=== PATIENT | female | born 1990 | race Caucasian/White ===

== ENCOUNTER 2018-01-26 23:42 | Emergency (ER) | payer OTHER ==
[2018-01-27] MEDS: NS 1,000 ML IV (00:15)
[2018-01-27 00:33] LABS: ALBUMIN 4.1 GM/DL (3.2-5.2); ALBUMIN/GLOBULIN RATIO 1.14 (1.00-1.93); ALKALINE PHOSPHATASE 84 U/L (45-117); ALT/SGPT 65 U/L (12-78); ANION GAP 11 MEQ/L (8-16); AST/SGOT 37 U/L (7-37); BILIRUBIN,DIRECT < 0.1 MG/DL (0.0-0.2); BILIRUBIN,TOTAL 0.2 MG/DL (0.2-1.0); BLOOD UREA NITROGEN 9 MG/DL (7-18); CALCIUM LEVEL 8.8 MG/DL (8.5-10.1); CARBON DIOXIDE LEVEL 24 MEQ/L (21-32); CHLORIDE LEVEL 111 MEQ/L (98-107); GLOMERULAR FILTRATION RATE > 60.0 (>60); GLUCOSE, FASTING 86 MG/DL (70-100); LIPASE 180 U/L (73-393); POTASSIUM SERUM 3.8 MEQ/L (3.5-5.1); SODIUM LEVEL 146 MEQ/L (136-145); TOTAL PROTEIN 7.7 GM/DL (6.4-8.2)
[2018-01-27] MEDS: MORPHINE 4 MG/ML 1ML VIAL/SYRINGE (J2270) IV ×2 (00:36→02:14)
[2018-01-27 00:45] LABS: BASO # 0.1 10^3/uL (0.0-0.2); EOS # 0.4 10^3/uL (0.0-0.50); EOS % 5.2 % (0.0-3.0); HEMATOCRIT 38.8 % (36.0-47.0); HEMOGLOBIN 13.2 g/dl (12.0-15.5); IMMATURE GRANULOCYTE % 0.4 % (0-3.0); LYMPH # 3.5 10^3/uL (1.5-6.5); LYMPH % 44.6 % (24.0-44.0); MEAN CORPUSCULAR HEMOGLOBIN 31.4 pg (27.0-33.0); MEAN CORPUSCULAR VOLUME 92.2 fl (80.0-96.0); MONO # 0.6 10^3/uL (0.0-0.8); MONO % 7.3 % (0.0-5.0); NEUTROPHILS # 3.3 10^3/uL (1.8-7.7); NEUTROPHILS % 41.5 % (36.0-66.0); PLATELET COUNT, AUTOMATED 343 10^3/uL (150-450); RED BLOOD COUNT 4.21 10^6/uL (4.00-5.40); RED CELL DISTRIBUTION WIDTH 12.1 % (11.5-14.5); WHITE BLOOD COUNT 7.9 10^3/uL (4.0-10.0)
[2018-01-27] MEDS ORDERED: ISOVUE-370 76% 100ML VIAL (Q9967) As Ordered (01:11)
[2018-01-27 01:45] LABS: CONTROL LINE HCG INT CTR LINE PRESENT; HCG, SERUM QUALITATIVE NEGATIVE (NEGATIVE)
[2018-01-27] MEDS: ONDANSETRON 4MG/2ML VIAL (J2405) IV (02:15)
[2018-01-27 03:59] LABS: KETONE, URINE AUTO RFX NEGATIVE (NEGATIVE); LEUKOCYTE ESTERASE UR AUTO RFX NEGATIVE (NEGATIVE); NITRITE, URINE AUTO RFX NEGATIVE (NEGATIVE); RBC, URINE AUTO RFX 1 /HPF (0-3); SPECIFIC GRAVITY UR AUTO RFX 1.034 (1.002-1.035); SQUAM EPITHELIAL CELL UR AURFX 0 /HPF (0-6); WBC, URINE AUTO RFX 0 /HPF (0-3)
== END 2018-01-27 04:35 | disposition home or self-care (01) ==
LOC: M ED 23:42
DX: K29.70 Gastritis, unspecified, without bleeding (principal); Z87.891 Personal history of nicotine dependence
CPT/HCPCS: J2270

== ENCOUNTER 2018-08-30 11:31 | Emergency (ER) | payer OTHER ==
[~2018-08-30] VITALS: Ht 167.6 cm; Wt 72.9 kg
[~2018-08-30 11:31] MED LIST: CARA1TAB6 PO; PROT1TAB2 PO
[2018-08-30 13:13] VITALS: BP 122/78
== END 2018-08-30 13:14 | disposition home or self-care (01) ==
LOC: M ED 11:31
DX: F07.81 Postconcussional syndrome (principal); S06.0X0A Concussion without loss of consciousness, initial encounter; W19.XXXA Unspecified fall, initial encounter; Y92.099 Unspecified place in other non-institutional residence as the place of occurrence of the external cause; Y93.89 Activity, other specified; Y99.9 Unspecified external cause status

== ENCOUNTER → 2019-02-06 | Outpatient (CLI) | payer OTHER ==
--- NOTE | 2019-02-07 04:59 | REP ---
Clinical: Anatomical evaluation. Comparison: None . Findings: Examination demonstrates a single live intrauterine in cephalic presentation. motion is identified by technologist. Placenta is noted anterior and grade zero without evidence for placenta previa or abruption. Amniotic fluid volume is normal. Cervix measures 3.9 cm in length and appears closed. No evidence for nuchal cord. Gestational age by LMP 20 weeks 6 days with SONAL 06/20/2019 . Gestational age by current measurements 20 weeks 2 days with SONAL 06/24/2019 . FHR equals 153 beats per minute. BPD 4.6 cm 20 weeks 0 days HC 17.4 cm 19 weeks 6 days AC 15.1 cm 20 weeks 2 days FL 3.3 cm 20 weeks 2 days HL 3.1 cm 20 weeks 3 days HC/AC ratio 1.15 Estimated weight 345 grams ( 27th percentile). Anatomical assessment demonstrates normal structures including cranium, choroid plexus, cavum, cerebellum/posterior fossa, lungs, four-chamber heart, diaphragm, stomach, cord insertion/three-vessel cord, kidneys/bladder, spine, and extremities. Impression: 1. Single live intrauterine in cephalic presentation demonstrating appropriate interval growth. 2. Limited evaluation of the facial features and cardiac ventricular outflow tracts. Remainder of the anatomical assessment is complete and normal. Electronically Signed by Santhosh Meneses MD 02/07/2019 04:50 A
== END ==
LOC: M RAD 13:07
PROVIDERS: ATTEND Advanced Practice Midwife
DX: Z36.9 Encounter for antenatal screening, unspecified (principal); Z3A.20 20 weeks gestation of pregnancy

== ENCOUNTER → 2019-02-08 | Outpatient (CLI) | payer OTHER ==
[2019-02-08 18:08] LABS: BASO # 0.1 10^3/uL (0.0-0.2); BASO % 0.4 % (0.0-1.0); EOS # 0.2 10^3/uL (0.0-0.5); EOS % 1.9 % (0.0-3.0); HEMATOCRIT 35.7 % (36.0-47.0); HEMOGLOBIN 11.6 g/dl (12.0-15.5); LYMPH # 1.7 10^3/uL (1.5-5.0); LYMPH % 14.3 % (24.0-44.0); MEAN CORPUSCULAR HEMOGLOBIN 31.5 pg (27.0-33.0); MEAN CORPUSCULAR HGB CONC 32.5 g/dl (32.0-36.5); MONO # 0.8 10^3/uL (0.0-0.8); MONO % 6.9 % (0.0-5.0); NEUTROPHILS # 8.9 10^3/uL (1.5-8.5); NEUTROPHILS % 75.6 % (36.0-66.0); PLATELET COUNT, AUTOMATED 311 10^3/uL (150-450); RED BLOOD COUNT 3.68 10^6/uL (4.00-5.40); WHITE BLOOD COUNT 11.8 10^3/uL (4.0-10.0)
[2019-02-08 19:10] LABS: CHLAMYDIA DNA AMPLIFICATION NEGATIVE (NEGATIVE); GC DNA AMPLIFICATION NEGATIVE (NEGATIVE)
[2019-02-11 14:25] LABS: HIV 1&2 SCREEN CENTAUR NEGATIVE (NEGATIVE); RUBELLA IgG QUALITATIVE IMMUNE (IMMUNE)
== END ==
LOC: M SMT 13:46
PROVIDERS: ATTEND Advanced Practice Midwife
DX: Z34.82 Encounter for supervision of other normal pregnancy, second trimester (principal)

== ENCOUNTER → 2019-03-06 | Outpatient (CLI) | payer OTHER ==
--- NOTE | 2019-03-06 13:42 | REP ---
OB ULTRASOUND: Real-time sonographic evaluation of the gravid uterus is performed. There is a single living intrauterine gestation with an estimated gestational age of 24 weeks 6 days, EDC 06/20/2019. Today's measurements indicate appropriate growth. BPD 56 mm = 23 weeks 1 day, less than 5th percentile HC 223 mm = 24 weeks 2 days, 37th percentile AC 197 mm = 24 weeks 2 days, 38th percentile Femur length 46 mm = 25 weeks 3 days, 60th percentile HC/AC ratio 1.13 within normal range. Estimated weight 724 grams, 38th percentile. Cervix is closed and measures 5.5 cm in length. heart rate 154 beats per minute. SEEN/GROSSLY UNREMARKABLE Lateral ventricles Yes Posterior fossa Yes Upper lip Yes Four-chamber heart Yes LVOT Yes RVOT Yes Stomach Yes Cord insertion No Three vessel cord Yes Kidneys Yes Bladder Yes Spine Yes position: Vertex. Placenta: Is on the right, grade 0 with no previa or abruption. Amniotic fluid: Within normal limits. Unreviewed
== END ==
LOC: M RAD 11:09
PROVIDERS: ATTEND Advanced Practice Midwife
DX: Z34.82 Encounter for supervision of other normal pregnancy, second trimester (principal)

== ENCOUNTER 2019-03-19 14:56 | Outpatient (CLI) | payer OTHER ==
[~2019-03-19] VITALS: Ht 167.6 cm; Wt 89.0 kg
[2019-03-19 15:10] VITALS: BP 119/72
[2019-03-19] MEDS ORDERED: PRENTAB9 PO (15:24)
[2019-03-19] MEDS ORDERED: MAPA500T2 PO (15:24)
--- NOTE | 2019-03-19 15:53 | IPNPDOC ---
Text Note Date of Service The patient was seen on 03/19/19. NOTE Subjective: Patient is a 28-year-old female at 26 weeks 5 days gestational age who presents to labor and delivery unit for acute onset back pain. Patient states that yesterday she started experiencing waves of back pain which radiated around to her right side. Today, about an hour and a half before presenting to the hospital, she started experiencing severe back pain mostly on the right side that radiated around her flank into her abdomen. Patient was concerned that she was having contractions so she called the office and was asked report for further evaluation. When asked to point to where she is having the back pain she points to her lower back on the right side. Patient reports that she is feeling the baby move. She denies any vaginal bleeding or discharge. She denies any fevers, dysuria, nausea, or vomiting. She does state that she is having less frequent bowel movements and prior to . Objective: Vitals: (see below) General: Alert and oriented female who was laying on the stretcher, in the room. Patient was able to talk full sentences however, she would get these waves of pain that she would have to breathe through. Once he is wasted past, she returned to normal details a talk in full sentences again. HEENT: Normocephalic, atraumatic, moist mucous membranes. Cardiac: RRR, No murmurs Pulm: Clear to auscultation b/l. No wheezing, rhonchi Abd: Uterus is soft and nontender to palpation. Uterine fundus is felt above the umbilicus. No CVA tenderness. Musculoskeletal: No tenderness to palpation of the paraspinal muscles bilaterally. Ext: No edema bilateral lower extremities heart tracing: Category 1 Labs (see below) Assessment/Plan Patient is a 28-year-old female at 26 weeks 5 days gestation who presents to the labor and delivery unit for acute onset back pain. Patient's urinalysis was negative for blood. Patient most likely has sacroiliitis or SI. Patient took a gram of Tylenol about 2-1/2 hours ago. Patient will be on Flexeril. Based on exam, patient is not in labor at this time. Patient will be discharged home. VS,Fishbone, I+O VS, Fishbone, I+O Vital Signs Date Time Temp Pulse Resp B/P (MAP) Pulse Ox O2 Delivery O2 Flow Rate FiO2 03/19/19 15:10 98.2 87 20 119/72 (88) GME ATTESTATION GME ATTESTATION My faculty preceptor for this patient encounter was physically present during the encounter and was fully available. All aspects of the patient interview, examination, medical decision making process, and medical care plan development were reviewed and approved by the faculty preceptor. The faculty preceptor is aware and concurs with the plan as stated in the body of this note and will attest to such by his/her cosignature. RAY GRAF DO Mar 19, 2019 15:53
[2019-03-19] MEDS ORDERED: PERCOCET 5MG/325MG TAB PO ONE (16:00)
[2019-03-19] MEDS ORDERED: CYCLOBENZAPRINE 10 MG TAB PO ONE (16:00)
== END 2019-03-19 16:39 | disposition home or self-care (01) ==
LOC: M LDO 14:56
PROVIDERS: ATTEND Specialist
DX: O26.892 Other specified pregnancy related conditions, second trimester (principal); Z3A.26 26 weeks gestation of pregnancy
CPT/HCPCS: G0378; G0463

== ENCOUNTER → 2019-03-25 | Outpatient (CLI) | payer OTHER ==
[~2019-03-25] MED LIST changes: +MAPA500T2 PO; +PRENTAB9 PO
== END ==
LOC: M PLALAB 09:53
PROVIDERS: ATTEND Advanced Practice Midwife
DX: Z34.93 Encounter for supervision of normal pregnancy, unspecified, third trimester (principal)

== ENCOUNTER → 2019-04-19 | Outpatient (CLI) | payer OTHER ==
[2019-04-19 17:25] LABS: HEMATOCRIT 32.3 % (36.0-47.0); HEMOGLOBIN 11.1 g/dl (12.0-15.5); MEAN CORPUSCULAR HEMOGLOBIN 32.2 pg (27.0-33.0); MEAN CORPUSCULAR HGB CONC 34.4 g/dl (32.0-36.5); MEAN CORPUSCULAR VOLUME 93.6 fl (80.0-96.0); PLATELET COUNT, AUTOMATED 309 10^3/uL (150-450); RED BLOOD COUNT 3.45 10^6/uL (4.00-5.40); WHITE BLOOD COUNT 10.2 10^3/uL (4.0-10.0)
== END ==
LOC: M PLALAB 14:02
PROVIDERS: ATTEND Advanced Practice Midwife
DX: Z34.03 Encounter for supervision of normal first pregnancy, third trimester (principal)

== ENCOUNTER 2019-05-02 13:52 | Outpatient (CLI) | payer OTHER ==
[~2019-05-02] VITALS: Ht 167.6 cm; Wt 90.4 kg
[2019-05-02 14:04] VITALS: BP 97/56
[2019-05-02 14:56] VITALS: BP 139/62
--- NOTE | 2019-05-02 15:04 | IPN ---
DATE OF EVALUATION: 05/02/2019 28-year-old, (G) 1, para (P) 0 female, at 33 weeks gestation, presents with several days of lower back pain that radiates to her groin. Pain is constant. It is not relieved with Tylenol or heat. She was diagnosed with sacroiliitis on a previous visit. OBJECTIVE: Blood pressure 97/56. Afebrile. No apparent distress. Head and neck exam normal. Abdomen nontender, gravid. No costovertebral angle (CVA) tenderness. heart tones category 1. Contractions none. Extremities nontender. ASSESSMENT: 28-year-old, 1, para 0, at 33 weeks, with sacroiliitis. PLAN: Discharge patient home. She will take Tylenol as needed. She will increase her warm baths. She declines further intervention such as muscle relaxants or narcotics for pain relief. She will followup in the office in 1 day.
== END 2019-05-02 15:00 | disposition home or self-care (01) ==
LOC: M LDO 13:52
PROVIDERS: ATTEND Specialist
DX: O99.89 Other specified diseases and conditions complicating pregnancy, childbirth and the puerperium (principal); M46.1 Sacroiliitis, not elsewhere classified; Z3A.33 33 weeks gestation of pregnancy
CPT/HCPCS: 59025; G0378; G0463

== ENCOUNTER → 2019-05-29 | Outpatient (REF) | payer OTHER | LOC: M SFHCWAGY 10:47 | PROVIDERS: ATTEND Advanced Practice Midwife | DX: Z36.85 Encounter for antenatal screening for Streptococcus B (principal) ==

== ENCOUNTER → 2019-06-05 | Outpatient (REF) | payer OTHER | LOC: M PLALAB 14:59 | PROVIDERS: ATTEND Advanced Practice Midwife | DX: Z34.03 Encounter for supervision of normal first pregnancy, third trimester (principal) ==

== ENCOUNTER 2019-06-14 16:39 | Inpatient (IN) | payer OTHER ==
[~2019-06-14] VITALS: Ht 167.6 cm; Wt 94.8 kg
[2019-06-14 17:05] VITALS: BP 130/74
[2019-06-14] MEDS: LR 1,000 ML IV SCH (17:15)
[2019-06-14] MEDS ORDERED: miSOPROStol 50 MCG 1/2 TAB (S0191) PO SCH (17:15)
[2019-06-14] MEDS ORDERED: LACTATED RINGER'S 1000 ML IV STA (17:15)
[2019-06-14 18:11] LABS: HEMATOCRIT 30.6 % (36.0-47.0); HEMOGLOBIN 10.3 g/dl (12.0-15.5); MEAN CORPUSCULAR HEMOGLOBIN 30.2 pg (27.0-33.0); MEAN CORPUSCULAR HGB CONC 33.7 g/dl (32.0-36.5); MEAN CORPUSCULAR VOLUME 89.7 fl (80.0-96.0); PLATELET COUNT, AUTOMATED 289 10^3/uL (150-450); RED BLOOD COUNT 3.41 10^6/uL (4.00-5.40); WHITE BLOOD COUNT 9.3 10^3/uL (4.0-10.0)
[2019-06-14] MEDS ORDERED: SLF 3 ML SYR IV PRN (18:30)
[2019-06-14 18:33] VITALS: BP 133/77
--- NOTE | 2019-06-14 19:38 | HPEPDOC ---
Obstetrical History & Physical General Date of Admission Jun 14, 2019 at 16:39 Primary Care Physician: ARLIN LOGAN CNM History of Present Illness Patient is a 29-year-old female who is a at 39.1 weeks gestation with an SONAL of 06/20/19 based off of her 1st trimester ultrasound. She initiated care in [place] and transferred care to [facility] at 17 weeks gestation. Her has been uncomplicated. She presents for an elective induction of labor due to her being deployed in 5 days. She denies contractions, bleeding, leaking of fluid. She reports active movement. Chief Complaint: Induction of labor Information Provided By: Patient Age: 29 : 1 Term: 0 Pre-term: 0 Abortions: 0 Livin Care Care: Good Care Dating Final EDC: Jun 20, 2019 Final EDC by: 1st trimester (US) EGA at Admission: 39.1 Antepartum Course Height (inches): 66 Pre- weight (lbs.): 170 Admission Weight (lbs.): 208 Change in Weight (lbs.): 38 Past Medical History Past Obstetrical History : Past Obstetrical History: [employer] History: No pertinent history Past Medical History Medical History asthma seasonal allergies Surgical History: Tonsilectomy, Other (repair of fracture) Family History Significant Family History: Heart disease Social History Marital Status: Family situation: Spouse/partner home Psychosocial History: Anxiety, Depression * Smoker: former Smoker Alcohol: Denies Drugs: denies Abuse Violence Screening Have you been hit/kicked/slapp: No Have you been sexually assault: No Imunizations Tdap status: current Allergies Coded Allergies: No Known Allergies (Unverified , 01/26/18) Medications Scheduled No.137/Iron/Folic Acd ( Vitamin Tablet) 1 Each Tablet, 1 TAB PO DAILY Physical Examination Physical Examination GENERAL: Alert and oriented times three. BREAST: . ABDOMEN: Gravid and non-tender to touch. FETUS: Is vertex (VTX) by sterile vaginal examination (SVE), fetus is vertex (VTX) by Avelino. HEART RATE: Regular rate and rhythm. LUNGS: Clear to auscultation (CTA). EXTREMITIES: No edema. No clonus. Deep tendon reflexes (DTRs) + 2. Vital Signs/I&O Vital Signs Date Time Temp Pulse Resp B/P (MAP) Pulse Ox O2 Delivery O2 Flow Rate FiO2 06/14/19 18:33 98.4 88 16 133/77 (95) Laboratory Data 24H LABS Laboratory Tests 2 06/14/19 17:02: Serology Scanned Report Hepatitis B Testing 06/14/19 18:01: Nucleated Red Blood Cells % (auto) 0.0 CBC/BMP Laboratory Tests 06/14/19 18:01 Pertinent Laboratoy Data Blood Type: O+ RBC Antibody Screen: Negative HIV: Negative Hepatitis B: Negative Hepatitis C: Negative Rapid Plasma Reagin: Nonreactive Rubella: Immune Chlamydia/Gonorrhea: Negative Group B Streptococcus: Negative Glucose Tolerance Test: 109 Vaginal Examination Dilation: 1cm Effacement: other (75%) Station: -2 Cervical Consistency: Soft Cervical Position: Anterior Presentation: Cephalic presentation Position: Vertex (occiput) Assessment Heart Rate (FHR): 130 Variability: Moderate Accelerations: Positive Decelerations: None Tocometer Contractions: Yes Frequency: irregular Multi-drug resistant Organism: No history of MDRO Assessment/Plan Assessment IUP at 39. 1 weeks gestation elective IOL GBS negative Category I FHR tracing Plan Admit to L&D. OOB ad rubina. Diet: regular then change to clears with IV Pitocin. Group B Streptococcus (GBS) negative. Labs and intravenous (IV) per unit protocol. Counseled on Cytotec, thomas bulb and Pitocin and induction of labor (IOL). Anesthesia consult per patient's request. Lactated Ringers (LR): Bolus 800 mL prior to epidural then at 125 mL/hr. Anticipate cervical ripening and cervical change. C-S as appropriate. ARLIN LOGAN CNM Jun 14, 2019 19:38
[2019-06-14 19:44] VITALS: BP 116/79
[2019-06-14 21:26] VITALS: BP 124/79
[2019-06-14] MEDS ORDERED: OXYTOCIN DRIP 30 UNITS in IV 1 EA IV SCH (21:45)
--- NOTE | 2019-06-14 21:45 | IPNPDOC ---
Obstetrical Progress Note Date of Service Jun 14, 2019 Subjective Patient reports she is feeling her contractions. Objective Vital Signs Date Time Temp Pulse Resp B/P (MAP) Pulse Ox O2 Delivery O2 Flow Rate FiO2 06/14/19 19:44 92 116/79 (91) 06/14/19 18:33 98.4 16 Assessment Heart Rate (FHR): 130 Variability: Moderate Accelerations: Positive Decelerations: None Heart Rate Tracing: Category I Tocometer Contractions: Yes Frequency: regular, other (3-5 minutes) Sterile Vaginal Examination Dilation: 2cm Effacement (%): other (75%) Station: -1 Cervical Consistency: Soft Cervical Position: Anterior Postion/Presentation: Cephalic presentation Assessment and Plan Age: 29 : 1 Term: 0 Pre-term: 0 Abortions: 0 Livin EGA at Admission: 39.1 Status: Reassuring Group B Streptococcus: Negative Anticipate: Vaginal Delivery Additional Comments Cook's Mejia bulb inserted with 60/40 cc of fluid. Patient tolerated well. IV Pitocin will be started per order. ARLIN LOGAN CNM Jun 14, 2019 21:45
[2019-06-14] MEDS: SLF 3 ML SYR IV SCH (22:00)
[2019-06-14 22:49] VITALS: BP 120/78
[2019-06-14 23:20] VITALS: BP 114/67
[2019-06-15] VITALS (47 sets, daily range): BP systolic 102–140; BP diastolic 56–83
--- NOTE | 2019-06-15 01:14 | IPNPDOC ---
Obstetrical Progress Note Date of Service Jun 15, 2019 Subjective Patient reports she is comfortable and trying to sleep. Objective Vital Signs Date Time Temp Pulse Resp B/P (MAP) Pulse Ox O2 Delivery O2 Flow Rate FiO2 06/14/19 19:44 92 116/79 (91) 06/14/19 18:33 98.4 16 Assessment Heart Rate (FHR): 125 Variability: Moderate Accelerations: Positive Decelerations: None Heart Rate Tracing: Category I Tocometer Contractions: Yes Frequency: regular Sterile Vaginal Examination Dilation: 4 cm (4-5 cm) Effacement (%): other (75%) Station: -2 Cervical Position: Anterior Postion/Presentation: Cephalic presentation Assessment and Plan Age: 29 : 1 Term: 0 Pre-term: 0 Abortions: 0 Livin EGA at Admission: 39.1 Weeks & Days 39.2 Status: Reassuring Group B Streptococcus: Negative Anticipate: Vaginal Delivery Additional Comments Mejia bulb is out. Pitocin is a 4 mu/min. Continue to increase IV Pitocin and consider AROM. ARLIN LOGAN CNM Jun 15, 2019 01:14
[2019-06-15] MEDS: LR 1,000 ML IV SCH ×2 (01:15→13:50)
[2019-06-15] MEDS: SLF 3 ML SYR IV SCH (06:00)
--- NOTE | 2019-06-15 06:39 | IPNPDOC ---
Obstetrical Progress Note Date of Service Jun 15, 2019 Subjective Patient reports she is comfortable and able to sleep through her contractions. Objective Vital Signs Date Time Temp Pulse Resp B/P (MAP) Pulse Ox O2 Delivery O2 Flow Rate FiO2 06/15/19 00:50 106 108/56 (73) 06/14/19 18:33 98.4 16 Assessment Heart Rate (FHR): 125 Variability: Moderate Accelerations: Positive Decelerations: None Heart Rate Tracing: Category I Tocometer Contractions: Yes Frequency: regular, other (2 to 8 minutes) Sterile Vaginal Examination Dilation: 5 cm Effacement (%): other (75%) Station: -2 Cervical Consistency: Soft Cervical Position: Middle Postion/Presentation: Shoulder presentation Assessment and Plan Age: 29 : 1 Term: 0 Pre-term: 0 Abortions: 0 Livin EGA at Admission: 39.1 Weeks & Days 39.2 weeks today Status: Reassuring Group B Streptococcus: Negative Anticipate: Vaginal Delivery Additional Comments IV Pitocin 16 mu/min. AROM to a moderate amount of clear fluid. ARLIN LOGAN CNM Jun 15, 2019 06:39
[2019-06-15] MEDS ORDERED: FENTANYL 2MCG/ML ROPIVACAINE 0.2% IN 0.9% NACL 100ML IVBAG As Ordered ONE (08:17)
[2019-06-15] MEDS ORDERED: ePHEDrine SULFATE 25 MG/5 ML(5MG/ML) SYRINGE IV PRN (10:00)
[2019-06-15] MEDS ORDERED: EPIDURAL/PCA KEYS XX PRN (10:00)
[2019-06-15] MEDS ORDERED: REFRIGERATOR IV KEYS XX PRN (10:00)
[2019-06-15] MEDS ORDERED: FENTANYL/ROPIVACAINE/NACL BAG 100 ML EPIDURAL SCH (10:00)
[2019-06-15] MEDS ORDERED: NALOXONE INJ 0.4 MG/1 ML VIAL (J2310) IV PRN (10:00)
[2019-06-15] MEDS ORDERED: diphenhydrAMINE INJ 50MG/ML VIAL (J1200) IV PRN (10:00)
[2019-06-15] MEDS ORDERED: ONDANSETRON 4MG/2ML VIAL (J2405) IV PRN (10:00)
[2019-06-15] MEDS ORDERED: EPIDURAL COMMENT XX SCH (10:00)
[2019-06-15] MEDS ORDERED: LACTATED RINGER'S 1000 ML IV PRN (10:00)
--- NOTE | 2019-06-15 11:55 | IPNPDOC ---
Text Note Date of Service The patient was seen on 06/15/19. NOTE S: Patient is comfortable with epidural in place O: FHR: 125 bpm, moderate variability, occasional early and variable decels, cat II [place]: contractions difficult to order picker/assembler SVE: 5/80/0 A: 29 y.o. at 39.2 EGA for IOL. P: Pit at 18 mu/min s/p miso x1 s/p thomas bulb status reassuring counselled on probability of C/S vs Dr. Mancera aware Continue to monitor VS,Fishbone, I+O VS, Fishbone, I+O Laboratory Tests 06/14/19 18:01 Vital Signs Date Time Temp Pulse Resp B/P (MAP) Pulse Ox O2 Delivery O2 Flow Rate FiO2 06/15/19 06:20 98.3 96 116/70 (85) 06/14/19 18:33 16 I&O- Last 24 Hours up to 6 AM 06/15/19 06:00 Intake Total 500 ml Balance 500 ml GME ATTESTATION GME ATTESTATION My faculty preceptor for this patient encounter was physically present during the encounter and was fully available. All aspects of the patient interview, examination, medical decision making process, and medical care plan development were reviewed and approved by the faculty preceptor. The faculty preceptor is aware and concurs with the plan as stated in the body of this note and will attest to such by his/her cosignature. ABAD MARTINEZ D.O. Jun 15, 2019 11:55
--- NOTE | 2019-06-15 13:40 | IPNPDOC ---
Text Note Date of Service The patient was seen on 06/15/19. NOTE S: Patient is comfortable with epidural in place. Feeling more pressure and some leaking O: FHR: 130 bpm, moderate variability, accels, occasional variables, cat I [place]: contractions q3-5 minutes SVE: 9/100/+1 A: 29 y.o. at 39.2 EGA for IOL. P: Pit at 18 mu/min s/p miso x1 s/p thomas bulb status reassuring anticipate VS,Fishbone, I+O VS, Fishbone, I+O Laboratory Tests 06/14/19 18:01 Vital Signs Date Time Temp Pulse Resp B/P (MAP) Pulse Ox O2 Delivery O2 Flow Rate FiO2 06/15/19 06:20 98.3 96 116/70 (85) 06/14/19 18:33 16 I&O- Last 24 Hours up to 6 AM 06/15/19 06:00 Intake Total 500 ml Balance 500 ml GME ATTESTATION GME ATTESTATION My faculty preceptor for this patient encounter was physically present during the encounter and was fully available. All aspects of the patient interview, examination, medical decision making process, and medical care plan development were reviewed and approved by the faculty preceptor. The faculty preceptor is aware and concurs with the plan as stated in the body of this note and will attest to such by his/her cosignature. ABAD MARTINEZ D.O. Jun 15, 2019 13:40
[2019-06-15 16:08] LABS: CORD GAS HCO3 A 25.5 MEQ/L; CORD GAS O2 SAT A 55.6 %; CORD GAS PCO2 A 58.9 mmHg; CORD GAS PH A 7.254 UNITS; CORD GAS PO2 A 24.6 mmHg; CORD GAS SBC A 20.9 MEQ/L; CORD GAS TCO2 A 27.3 MEQ/L
[2019-06-15 16:09] LABS: CORD GAS HCO3 V 23.8 MEQ/L; CORD GAS O2 SAT V 75.2 %; CORD GAS PCO2 V 44.6 mmHg; CORD GAS PH V 7.346 UNITS; CORD GAS PO2 V 31.8 mmHg; CORD GAS SBC V 22.2 MEQ/L; CORD GAS TCO2 V 25.2 MEQ/L
[2019-06-15] MEDS ORDERED: DIBUCAINE 1% OINTMENT 30GM TOP PRN (16:30)
[2019-06-15] MEDS ORDERED: DOCUSATE SODIUM 100 MG CAP PO PRN (16:30)
[2019-06-15] MEDS ORDERED: RHOGAM 300 MCG (1500 IU) INJ (J2790) IM SCH (16:30)
[2019-06-15] MEDS ORDERED: MEASLES,MUMPS,RUBELLA VACCINE INJ (MMR-II) (90707) SC SCH (16:30)
[2019-06-15] MEDS ORDERED: ACETAMINOPHEN 500 MG TAB PO PRN (16:30)
[2019-06-15] MEDS ORDERED: IBUPROFEN 600 MG TAB PO PRN (16:30)
[2019-06-15] MEDS ORDERED: METHYLERGONOVINE MALEATE 0.2 MG TAB PO PRN (16:30)
[2019-06-15] MEDS ORDERED: OXYTOCIN DRIP 30 UNITS in IV 1 EA IV SCH (17:00)
--- NOTE | 2019-06-15 17:18 | DN ---
DATE OF DELIVERY: 06/15/2019 PREDELIVERY DIAGNOSIS: 39 weeks 2 days estimated gestation. POSTDELIVERY DIAGNOSIS: Delivered. PROCEDURE: Spontaneous vaginal delivery. PROVIDER: Loraine Davila DO PGY-3. CIGAR HEAD STRINGER: Irene Mancera M.D. ANESTHESIA: Epidural ESTIMATED BLOOD LOSS: 400 mL FINDINGS: Female weighing 7 pounds 11 ounces or 3490 grams, scores 8 and 9. DELIVERY SUMMARY: After a short second stage, this patient spontaneously delivered a 7 pounds 11 ounce female weighing 3490 grams under epidural anesthesia at 1546 hours. The infant delivered left occiput anterior and restituted to the left occiput transverse. There was no nuchal cord. The shoulders delivered with ease followed by the corpus. The infant cried spontaneously and was handed to the mother. scores were 8 and 9. The cord was doubly clamped and cut by the father of the baby. The placenta was delivered spontaneously at 1553 hours and appeared to be intact. A three-vessel cord was noted. The patient received intravenous (IV) Pitocin immediately after delivery of the placenta. The patient had a small right labial abrasions and a first-degree perineal tear that was repaired with 3-0 Rapide in the usual fashion. Sponge counts were correct. Cord gases as follows: ABG: pH 7.25, pCO2 58.9, pO2 24.6, HCO3 25.5, base excess -3.0 VBG: pH 7.346, pCO2 44.6, pO2 31.8, HCO3 23.8, base excess -2.0 The parents have named their baby Rizwan Webb. [facility]
[2019-06-15] MEDS: IBUPROFEN 800 MG TAB PO PRN (18:10)
[2019-06-16] MEDS: ACETAMINOPHEN TAB 650MG DOSE (2X325MG) PO PRN ×2 (04:13→23:17)
[2019-06-16 06:00] VITALS: BP 94/49
[2019-06-16] MEDS: PRENATAL VITAMINS CHEWABLE TABLET PO SCH (07:33)
--- NOTE | 2019-06-16 07:54 | IPNPDOC ---
Progress Note Date of Service: Jun 16, 2019 Day#: 1 Progress Note SUBJECT: Doing well without complaints. Ambulating, voiding and pain is well-c ontrolled. Reports minimal lochia. OBJECTIVE: VITAL SIGNS: Within normal limits, afebrile. Alert and oriented times three. Abdomen: Fundus firm at U-2. Soft, NTTP. Ext: neg calf tenderness. ASSESSMENT: day #1 status post normal spontaneous vaginal delivery. Recovering in stable condition. PLAN: 1. Continue routine care 2. Discharge plans for tomorrow VS, I&O, 24H, Fishbone Vital Signs/I&O Vital Signs Date Time Temp Pulse Resp B/P (MAP) Pulse Ox O2 Delivery O2 Flow Rate FiO2 06/16/19 06:00 98.5 87 16 94/49 (64) 06/15/19 18:35 Room Air I&O- Last 24 Hours up to 6 AM 06/16/19 06:00 Intake Total 4571 ml Output Total 1850 ml Balance 2721 ml Laboratory Data 24H LABS Laboratory Tests 2 06/15/19 16:00: Cord Arterial Blood pH 7.254, Cord Arterial Blood PCO2 58.9, Cord Arterial Blood PO2 24.6, Cord Arterial Blood HCO3 25.5, Cord Arterial Blood Total CO2 27.3, Cord Arterial Blood Base Excess -3.0, Cord Arterial Base Excess (Standard 20.9, Cord Arterial Bld Oxygen Saturation 55.6, Cord Venous Blood pH 7.346, Cord Venous Blood PCO2 44.6, Cord Venous Blood PO2 31.8, Cord Venous Blood HCO3 23.8, Cord Venous Blood Total CO2 25.2, Cord Venous Base Excess (Actual) -2.0, Cord Venous Base Excess (Standard) 22.2, Cord Venous Blood Oxygen Saturation 75.2 OG LEIGH MD. Jun 16, 2019 07:54
[2019-06-16] MEDS ORDERED: ADACEL/BOOSTRIX VACCINE (DIPHTH/PERTUSS/ACELL/TETANUS)0.5ML SYR (90715) IM ONE (09:00)
[2019-06-16] MEDS ORDERED: INFLUENZA QUADRIVALENT PF VACCINE 0.5ML SYRINGE (90686) IM ONE (09:00)
[2019-06-16] MEDS: IBUPROFEN 800 MG TAB PO PRN (14:48)
[2019-06-16 18:16] VITALS: BP 108/58
[2019-06-17] MEDS: ACETAMINOPHEN TAB 650MG DOSE (2X325MG) PO PRN ×2 (03:48→07:54)
[2019-06-17 06:00] VITALS: BP 92/55
[2019-06-17] MEDS: PRENATAL VITAMINS CHEWABLE TABLET PO SCH (07:52)
== END 2019-06-17 11:35 | disposition home or self-care (01) | DRG 807 ==
LOC: M LDI 16:39 → M OBS 06-15 18:30
PROVIDERS: ADMIT Advanced Practice Midwife; ATTEND Obstetrics & Gynecology
PROC: 3E0P7GC Introduction of Other Therapeutic Substance into Female Reproductive, Via Natural or Artificial Opening (ICD-10-PCS; 2019-06-14)
PROC: 10E0XZZ Delivery of Products of Conception, External Approach (ICD-10-PCS; principal; 2019-06-15)
PROC: 10907ZC Drainage of Amniotic Fluid, Therapeutic from Products of Conception, Via Natural or Artificial Opening (ICD-10-PCS; 2019-06-15)
PROC: 0HQ9XZZ Repair Perineum Skin, External Approach (ICD-10-PCS; 2019-06-15)
DX: O70.0 First degree perineal laceration during delivery (principal); Z37.0 Single live birth; Z3A.39 39 weeks gestation of pregnancy

== ENCOUNTER → 2020-06-25 | Outpatient (REF) | payer OTHER ==
[2020-06-25 15:40] LABS: HEMATOCRIT 36.9 % (36.0-47.0); HEMOGLOBIN 12.4 g/dl (12.0-15.5); MEAN CORPUSCULAR HEMOGLOBIN 30.8 pg (27.0-33.0); MEAN CORPUSCULAR HGB CONC 33.6 g/dl (32.0-36.5); MEAN CORPUSCULAR VOLUME 91.8 fl (80.0-96.0); PLATELET COUNT, AUTOMATED 328 10^3/uL (150-450); RED BLOOD COUNT 4.02 10^6/uL (4.00-5.40); WHITE BLOOD COUNT 11.1 10^3/uL (4.0-10.0)
[2020-06-25 16:56] LABS: HEPATITIS C VIRUS ABY INDEX < 0.0 INDEX (<0.8); HIV 1&2 SCREEN CENTAUR NEGATIVE (NEGATIVE)
[2020-06-25 23:35] LABS: CHLAMYDIA DNA AMPLIFICATION NEGATIVE (NEGATIVE); GC DNA AMPLIFICATION NEGATIVE (NEGATIVE)
== END ==
LOC: M PLALAB 13:38
PROVIDERS: ATTEND Advanced Practice Midwife
DX: Z36.89 Encounter for other specified antenatal screening (principal); Z34.81 Encounter for supervision of other normal pregnancy, first trimester

== ENCOUNTER → 2020-07-13 | Outpatient (CLI) | payer OTHER | LOC: M PLALAB 09:12 | PROVIDERS: ATTEND Advanced Practice Midwife | DX: Z36.89 Encounter for other specified antenatal screening (principal); Z34.81 Encounter for supervision of other normal pregnancy, first trimester ==

== ENCOUNTER → 2020-08-25 | Outpatient (CLI) | payer OTHER | LOC: M WHC 10:05 | PROVIDERS: ATTEND Obstetrics & Gynecology | DX: Z53.8 Procedure and treatment not carried out for other reasons (principal) ==

== ENCOUNTER → 2020-09-08 | Outpatient (CLI) | payer OTHER ==
--- NOTE | 2020-09-09 03:41 | REP ---
INDICATION: ANATOMY COMPARISON: None. TECHNIQUE: Transabdominal obstetrical ultrasound with color Doppler evaluation. FINDINGS: Examination demonstrates a single live intrauterine in variable presentation. motion is identified by technologist. Placenta is noted posterior and grade 0 without evidence for placenta previa or abruption. Amniotic fluid volume is normal. Cervix measures 3.7 cm in length and appears closed.. Selected gestational age: 18 weeks 6 days with SONAL 02/03/2021. Gestational age by current measurements 18 weeks 5 days with SONAL 02/04/2021. FHR equals 143 beats per minute. Estimated weight 256 grams (40thpercentile). Anatomical assessment demonstrates normal structures including cranium, choroid plexus, cavum, cerebellum/posterior fossa, facial features, lungs, four-chamber heart/ventricular outflow tracts, diaphragm, stomach, cord insertion/three-vessel cord, kidneys/bladder, spine, and extremities. IMPRESSION: Single live intrauterine in variable presentation demonstrating appropriate estimated weight. Anatomical assessment is complete and normal. <Electronically signed by Santhosh Meneses > 09/09/20 [id number]
== END ==
LOC: M WHC 12:29
PROVIDERS: ATTEND Obstetrics & Gynecology
DX: Z36.89 Encounter for other specified antenatal screening (principal); Z3A.18 18 weeks gestation of pregnancy